=== PATIENT | female | born 1995 | race Caucasian/White ===

== ENCOUNTER 2017-10-23 22:46 | Emergency (ER) | payer SELFPAY, OTHER, MEDICAID ==
[2017-10-24] MEDS: KETOROLAC 30 MG INJ IM (01:45)
[2017-10-24 03:13] LABS: ADD UMIC NO; UR ASCORBIC ACID NEGATIVE (NEGATIVE); UR BILIRUBIN (Dip) NEGATIVE (NEGATIVE); UR BLOOD (Dip) NEGATIVE (NEGATIVE); UR CLARITY CLEAR (CLEAR); UR COLOR STRAW (YELLOW); UR GLUCOSE (Dip) NEGATIVE (NEGATIVE); UR KETONES (Dip) NEGATIVE (NEGATIVE); UR LEUKOCYTE ESTERASE (Dip) NEGATIVE Leu/ul (NEGATIVE); UR NITRITE (Dip) NEGATIVE (NEGATIVE); UR SPECIFIC GRAVITY (Dip) 1.006 (1.003-1.030); UR TOTAL PROTEIN (Dip) NEGATIVE (NEGATIVE); UR UROBILINOGEN (Dip) NEGATIVE (NEGATIVE)
== END 2017-10-24 03:29 | disposition home or self-care (01) ==
LOC: FTE 22:46
DX: M54.5 Low back pain (principal); M62.830 Muscle spasm of back
CPT/HCPCS: 72100; 81003; 96372; 99284-25